=== PATIENT | male | born 1995 | race African-American/Black ===

== ENCOUNTER 2016-04-22 21:27 | Emergency (ER) | payer OTHER ==
[2016-04-22 21:39] VITALS: BP 126/80
[2016-04-22] MEDS ORDERED: NS 0.9% 1000 ML* 1,000 ML IV ONE (22:37)
[2016-04-22] MEDS ORDERED: Ondansetron INJ* 2 MG/ML VIAL IV ONE (22:37)
[2016-04-22 23:18] LABS: Hematocrit 50 % (42-52); Hemoglobin 16.8 g/dl (14.0-18.0); Mean Corpuscular HGB Conc 34 g/dl (31-36); Mean Corpuscular Hemoglobin 31 pg (27-31); Mean Corpuscular Volume 91 fL (80-94); Mean Platelet Volume 9 um3 (7.4-10.4); Red Cell Distribution Width 13 % (10.5-15); White Blood Count 10.6 10^3/ul (3.5-10.8)
[2016-04-22 23:19] LABS: Add Diff/Slide Review? Slide Review Added; Comments Flag Yes
[2016-04-22 23:27] LABS: Albumin 4.4 g/dL (3.2-5.2); BUN/Creatinine Ratio 12.5 (8-20); C Reactive Protein 58.77 mg/L (< 5.00); Calcium 9.5 mg/dL (8.6-10.3); EGFR African American 100.3 (>60); Globulin 3.8 g/dL (2-4); Potassium 3.8 mmol/L (3.5-5.0); Total Bilirubin 1.7 mg/dL (0.2-1.0); Total Protein 8.2 g/dL (6.4-8.9)
[2016-04-22] MEDS ORDERED: Iohexol 300* (CONTRAST) 10 ML SDV IV ONE (23:36)
[2016-04-23 00:02] LABS: Immature Granulocytes 7 % (0-9); Neutrophil % 66 % (38-83); Reactive Lymph % 9 % (0-6)
[2016-04-23 00:03] LABS: Toxic Granulation 1+
[2016-04-23 00:15] LABS: Urine Bilirubin Negative (Negative); Urine Glucose Negative (Negative); Urine Nitrite Negative (Negative)
--- NOTE | 2016-04-23 07:44 | RAD ---
INDICATION: Fever COMPARISON: None TECHNIQUE: PA and lateral views of the chest were obtained. FINDINGS: The heart and mediastinum are normal in size and contour. The lungs are grossly clear. There is no evidence of large pleural effusion. Visualized bones are normal for the patient's age. There is no radiographic evidence of free air beneath the diaphragm IMPRESSION: No radiographic evidence of acute cardiopulmonary disease.
--- NOTE | 2016-04-23 08:01 | RAD ---
INDICATION: Abdominal pain. Appendicitis. COMPARISON: None TECHNIQUE: Axial source images were obtained from the hemidiaphragms to the symphysis pubis following administration of oral and intravenous contrast. 100 mL Omnipaque 300 was utilized. Coronal and sagittal reconstructed images were acquired. Lung bases: The lung bases are clear. Liver: The liver is normal in size. There are no masses. There is no ductal dilatation. Gallbladder: The gallbladder is contracted and consequently not well evaluated. Spleen: The spleen is normal in size. There are no masses. Pancreas: There is no focal pancreatic mass or ductal dilatation. Adrenal glands: There is no evidence of adrenal mass. Kidneys: The kidneys are normal in size and position. There are prompt nephrograms and there is prompt excretion bilaterally. There are no renal parenchymal masses. There is no evidence of nephrolithiasis. Adenopathy: There is no evidence of adenopathy by size criteria. Fluid collections: There are no free or localized fluid collections. Vessels:There are no significant atherosclerotic changes involving the aorta. There is no focal aneurysm. The iliac vessels are normal in caliber. The IVC appears normal. GI tract: There are no acute CT bowel findings. There is no obstruction. The stomach and small bowel appear normal. The lower GI tract is normal. The cecum, ileocecal valve, and terminal ileum appear normal. The appendix is visualized and appear normal. Pelvic organs: The prostate and seminal vesicles appear normal Bladder: There are no bladder masses. Abdominal and pelvic soft tissues: The extraperitoneal abdominal and pelvic soft tissues appear normal.. Osseous structures: There are no acute osseous findings. There is mild levoscoliosis Other: None IMPRESSION: NO ACUTE CT FINDINGS. NO MASS OR INFLAMMATORY CHANGES
== END 2016-04-23 03:13 | disposition home or self-care (01) ==
LOC: ED 21:27
DX: K52.9 Noninfective gastroenteritis and colitis, unspecified (principal)
CPT/HCPCS: 36415; 71020; 74177; 80053; 81003; 83690; 85025; 86140; 96374; 99282; J2405; Q9967